=== PATIENT | female | born 1970 ===

== ENCOUNTER 2020-02-06 01:54 | Inpatient (IN) ==
[2020-02-06] MEDS ORDERED: ONDANSETRON 4 MG/2 ML VIAL IV PRN (04:00)
[2020-02-06] MEDS ORDERED: GLUCAGON 1 MG VIAL IM PRN (04:00)
[2020-02-06] MEDS ORDERED: DEXTROSE 50% 25 GM/50 ML VIAL IV PRN (04:00)
[2020-02-06] MEDS ORDERED: FUROSEMIDE 40 MG/4 ML VIAL IV ONE (04:09)
[2020-02-06 05:17] LABS: Amorphous Crystals,Urine Occasional /HPF (Few); Apearance,Urine CLOUDY (Clear); Bilirubin,Urine Negative (Negative); Blood, Urine Large mg/dL (Negative); Glucose,Urine (UA) >=500 mg/dL (Negative); Ketones,Urine Negative (Negative); Mucus,Urine Occasional /LPF (Occasional); Nitrite,Urine Negative (Negative); Protein,Urine 100 MG/DL; RBC,Urine 17 /HPF (0-4); Urine Specific Gravity 1.018 (1.001-1.035); Urine Urobilinogen < 2.0 EU/DL (0.2-1.0); WBC,Urine 3 /HPF (0-6)
[2020-02-06 05:18] LABS: Urine Color Yellow (Yellow)
[2020-02-06 05:32] LABS: Barbiturates Screen,Urine Positive (Negative); Benzodiazepines Screen,Urine Negative (Negative); Cannabinoid Screen,Urine Negative (Negative); Opiate Screen,Urine Positive (Negative); Phencyclidine Screen,Urine Negative (Negative)
[2020-02-06 05:37] LABS: Albumin 2.8 G/DL (3.4-5.0); Bilirubin,Total 0.8 MG/DL (0.2-1.0); Calcium 8.3 MG/DL (8.5-10.1); Osmolality,Calculated 285.2 MOS/KG (273-304); Risk Ratio 6.78; Thyroid Stimulating Hormone 4.45 uIU/ml (0.358-3.74); Total Protein 7.9 G/DL (6.4-8.3); VLDL CHOLESTEROL 102.4 MG/DL
[2020-02-06] MEDS ORDERED: LEVOFLOXACIN INJ 750 MG in PREMIX 1 EACH IV ONE (08:00)
[2020-02-06] MEDS: PANTOPRAZOLE 40 MG VIAL IV SCH (08:01)
[2020-02-06] MEDS: INSULIN LISPRO 100 UNIT/ML SUBCUT SCH ×4 (08:02→21:51)
[2020-02-06] MEDS: ENOXAPARIN 30 MG/0.3 ML SYRINGE SUBCUT SCH (08:02)
[2020-02-06] MEDS: ALBUTEROL/IPRATROPIUM 3 ML NEB RESP TX SCH ×3 (08:05→19:43)
[2020-02-06] MEDS: SODIUM CHLORIDE 0.9% 1,000 ML IV SCH (13:02)
[2020-02-06] MEDS ORDERED: hydrALAZINE 20 MG/1 ML VIAL IV PRN (20:08)
[2020-02-06] MEDS: LABETALOL 20 MG/4 ML SYRINGE IV PRN (20:28)
[2020-02-07] MEDS: ALBUTEROL/IPRATROPIUM 3 ML NEB RESP TX SCH ×4 (01:37→19:20)
[2020-02-07] MEDS: LABETALOL 20 MG/4 ML SYRINGE IV PRN ×2 (02:43→08:17)
[2020-02-07 04:18] LABS: Basophils % 0.4 % (0.0-0.8); Eosinophils % 0.4 % (0.00-10.9); Hematocrit 40.8 VOL% (35.7-47.0); Hemoglobin 13.3 GM/DL (12.0-16.0); Immature Granulocytes % 0.6 %; Immature Granulocytes Absolute 0.06 #; Lymphocytes # 1.4 10*3/uL (1.4-4.0); Lymphocytes % 12.9 % (21.3-54.2); Mean Corpuscular HGB Conc 32.6 GM/DL (32-36); Mean Corpuscular Volume 91.3 FL (87-102); Mean Platelet Volume 10.9 FL (9.6-12.0); Monocytes % 3.6 % (1.7-12.7); Neutrophils % 82.1 % (38.7-73.9); Platelet Count 206 T/CUMM (130-400); Red Blood Count 4.47 MC/CUMM (3.8-5.5); Red Cell Distribution Width 13.5 % (9.3-17.3); White Blood Count 10.5 T/CUMM (4-12)
[2020-02-07 05:32] LABS: Calcium 8.6 MG/DL (8.5-10.1)
[2020-02-07 05:52] LABS: Troponin I 1.83 NG/ML (0.00-0.045)
[2020-02-07] MEDS: SODIUM CHLORIDE 0.9% 1,000 ML IV SCH ×2 (06:33→21:02)
[2020-02-07] MEDS: ENOXAPARIN 30 MG/0.3 ML SYRINGE SUBCUT SCH (08:17)
[2020-02-07] MEDS: PANTOPRAZOLE 40 MG VIAL IV SCH (08:18)
[2020-02-07] MEDS ORDERED: NIFEdipine 10 MG CAPSULE PO PRN (08:18)
[2020-02-07] MEDS: INSULIN LISPRO 100 UNIT/ML SUBCUT SCH ×4 (08:18→20:58)
[2020-02-07] MEDS: DIAZEPAM 5 MG TABLET PO SCH ×4 (09:20→23:45)
[2020-02-07] MEDS: amLODIPine 10 MG TABLET PO SCH (09:20)
[2020-02-07] MEDS: carvediloL 12.5 MG TABLET PO SCH ×2 (09:20→20:58)
[2020-02-07 14:54] LABS: Apearance,Urine CLOUDY (Clear); Bilirubin,Urine Negative (Negative); Blood, Urine Large mg/dL (Negative); Glucose,Urine (UA) >=500 mg/dL (Negative); Ketones,Urine 5 mg/dL (Negative); Mucus,Urine Occasional /LPF (Occasional); Nitrite,Urine Negative (Negative); Protein,Urine 100 MG/DL; RBC,Urine 1977 /HPF (0-4); Uric Acid Crystals,Urine Occasional /HPF (<1); Urine Color Yellow (Yellow); Urine Specific Gravity 1.018 (1.001-1.035); Urine Urobilinogen < 2.0 EU/DL (0.2-1.0); WBC,Urine 52 /HPF (0-6)
[2020-02-08] MEDS: DIAZEPAM 5 MG TABLET PO SCH ×6 (00:42→20:06)
[2020-02-08] MEDS: ALBUTEROL/IPRATROPIUM 3 ML NEB RESP TX SCH ×4 (02:00→18:40)
[2020-02-08] MEDS: ACETAMINOPHEN 325 MG TABLET PO PRN ×2 (04:02→18:05)
[2020-02-08 06:14] LABS: Basophils % 0.4 % (0.0-0.8); Eosinophils # 0.2 10*3/uL (0.0-0.87); Eosinophils % 1.9 % (0.00-10.9); Hematocrit 41.5 VOL% (35.7-47.0); Hemoglobin 13.7 GM/DL (12.0-16.0); Immature Granulocytes % 0.6 %; Immature Granulocytes Absolute 0.06 #; Lymphocytes % 20.6 % (21.3-54.2); Mean Corpuscular Volume 89.4 FL (87-102); Mean Platelet Volume 10.7 FL (9.6-12.0); Monocytes % 4.1 % (1.7-12.7); Neutrophils % 72.4 % (38.7-73.9); Platelet Count 242 T/CUMM (130-400); Red Blood Count 4.64 MC/CUMM (3.8-5.5); Red Cell Distribution Width 13.2 % (9.3-17.3); White Blood Count 9.8 T/CUMM (4-12)
[2020-02-08 06:52] LABS: Albumin 2.6 G/DL (3.4-5.0); Bilirubin,Total 1.3 MG/DL (0.2-1.0); Calcium 9.2 MG/DL (8.5-10.1); Osmolality,Calculated 279.5 MOS/KG (273-304); Total Protein 7.6 G/DL (6.4-8.3)
[2020-02-08 06:54] LABS: Troponin I 0.702 NG/ML (0.00-0.045)
[2020-02-08] MEDS ORDERED: LEVOFLOXACIN INJ 500 MG in PREMIX 1 EACH IV SCH (08:00)
[2020-02-08] MEDS: INSULIN LISPRO 100 UNIT/ML SUBCUT SCH ×4 (08:55→20:53)
[2020-02-08] MEDS: PANTOPRAZOLE 40 MG VIAL IV SCH (08:55)
[2020-02-08] MEDS: ENOXAPARIN 30 MG/0.3 ML SYRINGE SUBCUT SCH (08:55)
[2020-02-08] MEDS: amLODIPine 10 MG TABLET PO SCH (08:56)
[2020-02-08] MEDS: carvediloL 12.5 MG TABLET PO SCH ×2 (08:56→20:53)
[2020-02-08] MEDS: SODIUM CHLORIDE 0.9% 1,000 ML IV SCH ×2 (10:06→22:33)
[2020-02-08] MEDS: POTASSIUM CHLORIDE 20 MEQ TABLET PO SCH ×2 (13:37→20:53)
[2020-02-09] MEDS: DIAZEPAM 5 MG TABLET PO SCH ×4 (02:19→13:01)
[2020-02-09 07:12] LABS: Alanine Aminotransferase 660 U/L (13-56); Albumin 2.5 G/DL (3.4-5.0); Alkaline Phosphatase 149 U/L (45-117); Aspartate Amino Transferase 257 U/L (0-37); Blood Urea Nitrogen 25 MG/DL (7-18); Calcium 9.1 MG/DL (8.5-10.1); Estimated Glom Filtration Rate 56 ML/MIN; Glucose 180 MG/DL (74-106); Osmolality,Calculated 276.2 MOS/KG (273-304); Total Protein 7.3 G/DL (6.4-8.3)
[2020-02-09 07:13] LABS: Troponin I 0.329 NG/ML (0.00-0.045)
[2020-02-09] MEDS: ALBUTEROL/IPRATROPIUM 3 ML NEB RESP TX SCH ×3 (07:22→14:19)
[2020-02-09] MEDS ORDERED: glipiZIDE 5 MG TABLET PO SCH (07:30)
[2020-02-09] MEDS: INSULIN LISPRO 100 UNIT/ML SUBCUT SCH ×2 (08:03→13:00)
[2020-02-09] MEDS: PANTOPRAZOLE 40 MG VIAL IV SCH (09:38)
[2020-02-09] MEDS: carvediloL 12.5 MG TABLET PO SCH (09:38)
[2020-02-09] MEDS: ENOXAPARIN 30 MG/0.3 ML SYRINGE SUBCUT SCH (09:38)
[2020-02-09] MEDS: POTASSIUM CHLORIDE 20 MEQ TABLET PO SCH (09:38)
[2020-02-09] MEDS: amLODIPine 10 MG TABLET PO SCH (09:38)
[2020-02-09 12:11] VITALS: BP 145/78
[2020-02-09] MEDS: SODIUM CHLORIDE 0.9% 1,000 ML IV SCH (13:01)
== END 2020-02-09 15:42 | disposition home or self-care (01) | DRG 812 ==
LOC: N.ICU → SUATTDRO 03:39 → OBSVTOIN 03:39 → N.TELEN 02-07 15:15
PROVIDERS: ADMIT Phlebology; ATTEND Internal Medicine